=== PATIENT | female | born 1970 | race African-American/Black ===

== ENCOUNTER 2016-10-04 19:59 | Emergency (ER) | payer OTHER ==
[~2016-10-04] VITALS: Ht 170.2 cm; Wt 61.2 kg
[2016-10-04 19:59] VITALS: BP 126/76
[~2016-10-04 19:59] MED LIST: BIRTH CONTROL; PRED10TA PO
[2016-10-04] MEDS ORDERED: predniSONE 20 MG TABLET ONE (20:41)
[2016-10-04] MEDS ORDERED: MORPHINE SULFATE INJ 10 MG/ML DISP.SYRIN ONE (20:41)
[2016-10-04] MEDS ORDERED: ONDANSETRON 4 MG TAB.RAPDIS ONE (20:41)
[2016-10-04] MEDS ORDERED: MORPHINE SULFATE INJ 2 MG/ML DISP.SYRIN IM ONE (21:00)
[2016-10-04] MEDS ORDERED: predniSONE 20 MG TABLET PO ONE (21:00)
[2016-10-04] MEDS ORDERED: ONDANSETRON 4 MG TAB.RAPDIS SL ONE (21:00)
== END 2016-10-04 20:58 | disposition home or self-care (01) ==
LOC: ER 19:59
DX: Z76.0 Encounter for issue of repeat prescription (principal); M06.9 Rheumatoid arthritis, unspecified; G89.29 Other chronic pain; J44.9 Chronic obstructive pulmonary disease, unspecified; F17.200 Nicotine dependence, unspecified, uncomplicated; Z88.6 Allergy status to analgesic agent; Z88.5 Allergy status to narcotic agent
CPT/HCPCS: A4606; J2270; Q0162; Z7610

== ENCOUNTER 2016-11-06 04:50 | Emergency (ER) | payer MEDICAID, OTHER ==
[~2016-11-06] VITALS: Ht 170.2 cm; Wt 63.5 kg
[2016-11-06 06:04] VITALS: BP 124/84
--- NOTE | 2016-11-06 06:04 | NUR ---
PT BIBSELF, AMBULATORY TO ER BED 6, PT C/O "DIFFICULT TO WALK X 2 DAYS D/T LEFT LOWER LEG ISSUES, HX RA, RAN OUT OF PREDNISONE X 1 WEEK" PT AOX4 RR EVEN AND UNLABORED. NO SOB NOTED. NAD NOTED. NO NVD AT THIS TIME. PT PLACED ON MONITOR WAITING FOR MD RIVERO.
--- NOTE | 2016-11-06 06:06 | NUR ---
DR. CHARLES AT BEDSIDE FOR EVAL.
--- NOTE | 2016-11-06 06:10 | NUR ---
PT AMBULATORY TO RESTROOM. URINE COLLECTED. CALLED LAB FOR AGRICULTURAL CONSULTANT.
[2016-11-06] MEDS ORDERED: predniSONE 10 MG TABLET ONE (06:13)
--- NOTE | 2016-11-06 06:18 | NUR ---
LAB AT BEDSIDE FOR BLOOD DRAW.
[2016-11-06 06:29] LABS: APPEARANCE,URINE CLEAR (CLEAR); BILIRUBIN,URINE NEGATIVE (NEGATIVE); BLOOD, URINE 3+ Ery/uL (NEGATIVE); COLOR,URINE YELLOW (YELLOW); KETONES,URINE NEGATIVE (NEGATIVE); LEUKOCYTE ESTERASE ,URINE NEGATIVE (NEGATIVE); NITRITE, URINE NEGATIVE (NEGATIVE); PROTEIN,URINE NEGATIVE (NEGATIVE); UGLUCOSE NEGATIVE (NEGATIVE); UROBILINOGEN,URINE 0.2 EU/dL (0.2)
[2016-11-06] MEDS ORDERED: predniSONE 20 MG TABLET PO ONE (06:30)
[2016-11-06 06:33] LABS: BACTERIA,URINE Few /HPF (None Seen); WBC,URINE 0-2 /HPF (0-3)
[2016-11-06 06:35] LABS: BASOPHILS % (AUTO) 0.2 % (0.0-2.0); EOSINOPHILS # (AUTO) 0.2 /CMM (0.0-0.7); EOSINOPHILS % (AUTO) 1.6 % (0.0-6.0); HEMATOCRIT 40 % (33-45); HEMOGLOBIN 13.6 g/dL (11.5-14.8); LYMPHOCYTES # (AUTO) 1.2 /CMM (0.8-4.8); LYMPHOCYTES % (AUTO) 11.5 % (20.0-44.0); MEAN CORPUSCULAR HEMOGLOBIN 31 PG (26.0-33.0); MEAN CORPUSCULAR HGB CONC 34 g/dl (31.0-36.0); MEAN CORPUSCULAR VOLUME 92 fL (82-100); MONOCYTES # (AUTO) 1.1 /CMM (0.1-1.30); MONOCYTES % (AUTO) 10.1 % (2.0-12.0); NEUTROPHILS # (AUTO) 8.3 /CMM (1.8-8.9); NEUTROPHILS % (AUTO) 76.6 % (43.0-81.0); PLATELET COUNT (AUTO) 251 /CMM (150-450); RED BLOOD CELL COUNT(AUTO) 4.39 MIL/uL (4.0-5.2); WHITE BLOOD COUNT (AUTO) 10.9 K/uL (4.3-11.0)
[2016-11-06 06:43] LABS: CREATININE 0.8 mg/dL (0.6-1.3); POTASSIUM 3.7 mmol/L (3.5-5.1)
[2016-11-06 06:49] LABS: ALBUMIN 3.8 g/dL (3.4-5.0); BILIRUBIN,DIRECT 0.1 mg/dL (0.0-0.2); BILIRUBIN,TOTAL 0.3 mg/dL (0.2-1.0); TOTAL PROTEIN, SERUM 8.2 g/dL (6.4-8.2)
--- NOTE | 2016-11-06 06:55 | NUR ---
DR. CHARLES AT BEDSIDE SPEAKING TO PT REGARDING RESULTS.
== END 2016-11-06 07:15 | disposition home or self-care (01) ==
LOC: ER 04:55
DX: R53.1 Weakness (principal); M06.9 Rheumatoid arthritis, unspecified; F17.200 Nicotine dependence, unspecified, uncomplicated; Z88.5 Allergy status to narcotic agent; Z88.6 Allergy status to analgesic agent
CPT/HCPCS: 36415; 80048-TC; 80076-TC; 81000-TC; 85025-TC; A4606; Z7610

== ENCOUNTER 2017-02-20 16:51 | Emergency (ER) | payer MEDICARE, MEDICAID ==
[~2017-02-20] VITALS: Ht 170.2 cm; Wt 55.8 kg
[2017-02-20 17:23] VITALS: BP 143/85
[2017-02-20] MEDS ORDERED: MORPHINE SULFATE INJ 2 MG/ML DISP.SYRIN IM ONE (18:00)
[2017-02-20] MEDS ORDERED: ONDANSETRON 4 MG TAB.RAPDIS SL ONE (18:00)
[2017-02-20] MEDS ORDERED: MORPHINE SULFATE INJ 10 MG/ML DISP.SYRIN ONE (18:13)
[2017-02-20] MEDS ORDERED: ONDANSETRON 4 MG TAB.RAPDIS ONE (18:14)
[2017-02-20 18:54] LABS: APPEARANCE,URINE Clear (CLEAR); BILIRUBIN,URINE Negative (NEGATIVE); BLOOD, URINE Large Ery/uL (NEGATIVE); COLOR,URINE Yellow (YELLOW); KETONES,URINE Negative (NEGATIVE); LEUKOCYTE ESTERASE ,URINE Trace (NEGATIVE); NITRITE, URINE Negative (NEGATIVE); PH,URINE 8.5 (5.0-8.0); PROTEIN,URINE Trace mg/dl (NEGATIVE); UGLUCOSE Negative (NEGATIVE); UROBILINOGEN,URINE 0.2 EU/dL (0.2)
[2017-02-20 19:08] LABS: BACTERIA,URINE None seen /HPF (None Seen); RBC,URINE TOO NUMEROUS TO COUN /HPF (0-2); SQUAMOUS EPITHELIAL CELL,UR Moderate /HPF (None Seen); WBC,URINE 0-2 /HPF (0-3)
--- NOTE | 2017-02-20 20:55 | NUR ---
Patient discharged to home in stable condition. Written and verbal after care instructions given. Patient verbalizes understanding of instruction. PT GIVEN PERCOCET, PT TOLD NOT TO DRIVE OR WORK WHILE TAKING MEDICINE, PT VERBALIZED UNDERSTANDING AND WALKED OUT OF THE ER WITH A STEADY GAIT
--- NOTE | 2017-02-20 21:05 | NUR ---
US PELVIC NON OB ORDERED BUT WAS CANCELLED. I WAS NOT INFORMED. CONFIRMED WITH ER NURSE THAT WAS NOT NEEDED @ 21:02.
== END 2017-02-20 20:58 | disposition home or self-care (01) ==
LOC: ER 16:53
DX: M54.5 Low back pain (principal); M06.9 Rheumatoid arthritis, unspecified; F17.200 Nicotine dependence, unspecified, uncomplicated; Z88.5 Allergy status to narcotic agent; Z88.6 Allergy status to analgesic agent; Z88.1 Allergy status to other antibiotic agents
CPT/HCPCS: 74176; 81001; 84703; 96372; 99285; A4606; J2270; Q0162; 81000-TC; Z7610

== ENCOUNTER 2017-03-31 17:32 | Emergency (ER) | payer MEDICARE, MEDICAID ==
[~2017-03-31] VITALS: Ht 167.6 cm; Wt 58.5 kg
[2017-03-31 17:32] VITALS: BP 133/80
[2017-03-31] MEDS ORDERED: oxyCODONE/APAP (5/325 MG) 1 UDTAB TABLET ONE (18:05)
[2017-03-31] MEDS ORDERED: ONDANSETRON 4 MG TAB.RAPDIS ONE (18:18)
[2017-03-31] MEDS ORDERED: IBUPROFEN 600 MG TABLET PO ONE ×2 (18:18→18:30)
[2017-03-31] MEDS ORDERED: oxyCODONE/APAP (5/325 MG) 1 UDTAB TABLET PO ONE (18:30)
[2017-03-31] MEDS ORDERED: ONDANSETRON 4 MG TAB.RAPDIS SL ONE (18:30)
== END 2017-03-31 18:39 | disposition home or self-care (01) ==
LOC: ER 17:35
DX: M06.9 Rheumatoid arthritis, unspecified (principal); M25.511 Pain in right shoulder; Z88.5 Allergy status to narcotic agent; Z88.1 Allergy status to other antibiotic agents; Z88.8 Allergy status to other drugs, medicaments and biological substances; F17.200 Nicotine dependence, unspecified, uncomplicated
CPT/HCPCS: 99283; A4606; Q0162; Z7610

== ENCOUNTER 2017-09-27 20:30 | Emergency (ER) | payer OTHER, MEDICAID ==
[~2017-09-27] VITALS: Ht 167.6 cm; Wt 68.0 kg
[2017-09-27 20:35] VITALS: BP 128/78
[2017-09-27] MEDS ORDERED: IBUPROFEN 600 MG TABLET PO ONE ×2 (22:30→22:36)
[2017-09-27] MEDS ORDERED: predniSONE 20 MG TABLET PO ONE (22:30)
[2017-09-27] MEDS ORDERED: predniSONE 20 MG TABLET ONE (22:36)
== END 2017-09-27 23:03 | disposition home or self-care (01) ==
LOC: ER 20:31
DX: M25.532 Pain in left wrist (principal); F17.200 Nicotine dependence, unspecified, uncomplicated; Z88.1 Allergy status to other antibiotic agents; Z88.6 Allergy status to analgesic agent; Z88.5 Allergy status to narcotic agent; Z60.2 Problems related to living alone; X58.XXXA Exposure to other specified factors, initial encounter; Y93.01 Activity, walking, marching and hiking; Y92.89 Other specified places as the place of occurrence of the external cause; Y99.8 Other external cause status
CPT/HCPCS: 73110; A4606; Z7610